=== PATIENT | male | born 1965 | race Caucasian/White ===

== ENCOUNTER → 2017-08-25 | Outpatient (CLI) | payer BC ==
[~2017-08-25] MED LIST: IOPAMIDOL 370 MG/ML 200 ML INFUS..BTL INJ ONE; SODIUM CHLORIDE 0.9% 250ML 0 ML ONE; SODIUM CHLORIDE 0.9% 50ML 50 ML ONE
[2017-08-25 16:27] LABS: CREATININE, SERUM 1.33 mg/dL (0.72-1.25)
--- NOTE | 2017-08-25 17:19 | Diagnostic Imaging Report ---
PROCEDURE: CT ABDOMEN AND PELVIS WITH CONTRAST TECHNIQUE: The abdomen and pelvis were scanned utilizing a multidetector helical scanner from the diaphragm to the lesser trochanter after the IV administration of 100 cc of Isovue 370 and the oral administration of water. Coronal and sagittal multiplanar reformations were obtained. COMPARISON: None. INDICATIONS: RIGHT LOWER QUADRANT PAIN FINDINGS: LOWER THORAX: Unremarkable HEPATOBILIARY: Diffuse hepatic steatosis. 1.3 x 2.0 cm fluid density lesion in hepatic segment IVB (series 2 image 18), consistent with a simple cyst. No other focal hepatic lesions. No biliary ductal dilatation. Gallbladder is unremarkable. SPLEEN: No splenomegaly. PANCREAS: No focal masses or ductal dilatation. ADRENALS: No adrenal nodules. KIDNEYS/URETERS: Symmetrical renal enhancement. No hydronephrosis, stones, or solid mass lesions. PELVIC ORGANS/BLADDER: Bladder, prostate, and seminal vesicles are unremarkable. PERITONEUM / RETROPERITONEUM: No free air or fluid. LYMPH NODES: No lymphadenopathy. VESSELS: Unremarkable. GI TRACT: No bowel dilation or evidence of obstruction. Appendix is not identified, and normal in caliber. No pericolonic inflammatory changes. Moderate amount of retained stool in the ascending and transverse colon. No intraluminal masses. BONES AND SOFT TISSUES: No aggressive lytic lesions. Soft tissues are grossly unremarkable. IMPRESSION: 1. No acute abdominopelvic abnormalities. Specifically, no acute findings in the right lower quadrant to explain the patient's pain. Appendix is unremarkable. 2. Moderate amount of retained stool in the ascending and transverse colon, which may reflect constipation. 3. Diffuse hepatic steatosis. 4. Findings discussed with Parag Goss PA-C August 25, 2017 at 1715 hrs. Abdon Dubois M.D. Dictated by: Abdon Dubois M.D. on 08/25/2017 at 17:19 Electronically approved by: Abdon Dubois M.D. on 08/25/2017 at 17:19
== END ==
LOC: CT 15:24
PROVIDERS: ATTEND Family Medicine
DX: R10.31 Right lower quadrant pain (principal)
CPT/HCPCS: 36415; 74177; 82565; 84520; Q9967; J7050